=== PATIENT | male | born 1965 | race Hispanic/Latino ===

== ENCOUNTER 2022-09-30 10:32 | Observation (INO) | payer BC, SELFPAY ==
[2022-09-30] MEDS ORDERED: ASPIRIN 81 MG CHEWABLE TABLET ONE (10:47)
[2022-09-30 10:58] LABS: Absolute Lymphocytes (CBC) 2.4 K/uL (0.7-4.9); Hematocrit 37.9 % (39.6-49.0); Lymphocytes % 34.4 % (15.3-44.8); MCV 84.8 fL (80-100); MPV 7.3 fL (7.6-11.3); RBC Red Blood Cell Count 4.48 M/uL (4.33-5.43)
[2022-09-30 11:08] LABS: Protime INR 1.01
[2022-09-30 11:24] LABS: Albumin 3.4 g/dL (3.4-5.0); Bilirubin Direct 0.1 mg/dL (0-0.2); Bilirubin Total 0.4 mg/dL (0.2-1.0); Magnesium 2.1 mg/dL (1.6-2.4); Potassium 3.9 mmol/L (3.5-5.1); Protein, Total 7.3 g/dL (6.4-8.2); Troponin High Sensitivity 4.6 pg/mL (<58.9)
--- NOTE | 2022-09-30 11:34 | RAD REPORT ---
EXAM DESCRIPTION: Umm Single View09/30/2022 11:28 am CLINICAL HISTORY: Chest pain COMPARISON: none FINDINGS: Mild bilateral interstitial lung opacities The lungs appear clear of acute infiltrate. The heart is mildly to moderately enlarged IMPRESSION: These findings probably indicate mild CHF
--- NOTE | 2022-09-30 11:56 | ER ---
Nurse's Notes [facility] Name: Steve Hernandez Age: 57 yrs Sex: Male : 1965 Arrival Date: 09/30/2022 Time: 10:35 Bed 14 Private MD: Diagnosis: Chest pain, unspecified Presentation: 09/30 10:40 Chief complaint: Patient states: Chest pain 4/10 that began this morning. Coronavirus ss screen: Client denies travel out of the [place] in the last 14 days. Ebola Screen: Patient denies exposure to infectious person. Patient denies travel to an Ebola-affected area in the 21 days before illness onset. Initial Sepsis Screen: Does the patient meet any 2 criteria? No. Patient's initial sepsis screen is negative. Does the patient have a suspected source of infection? No. Patient's initial sepsis screen is negative. Risk Assessment: Do you want to hurt yourself or someone else? Patient reports no desire to harm self or others. Onset of symptoms was September 30, 2022. 10:40 Method Of Arrival: Ambulatory ss 10:40 Acuity: ANTONIO 3 ss Historical: - Allergies: 10:44 No Known Allergies; ss - Home Meds: 10:44 None [Active]; ss - PMHx: 10:44 None; ss - PSHx: 10:44 Unknown abd surgery 8 years ago; ss - Immunization history:: Client reports receiving the 2nd dose of the Covid vaccine. - Social history:: Smoking status: Patient denies any tobacco usage or history of. Patient uses alcohol, occasionally. Screenin:51 [facility] ED Fall Risk Assessment (Adult) History of falling in the last 3 months, ko1 including since admission No falls in past 3 months (0 pts) Confusion or Disorientation No (0 pts) Intoxicated or Sedated No (0 pts) Impaired Gait No (0 pts) Mobility Assist Device Used No (0 pt) Altered Elimination No (0 pt) Score/Fall Risk Level 0 - 2 = Low Risk Oriented to surroundings, Maintained a safe environment, Educated pt \T\ family on fall prevention, incl call for assistance when getting out of bed, Assessed \T\ reinforced patient's understanding of fall precautions, Provided non-skid footwear, Hourly rounding (assess needs \T\ fall precautionary measures) done, Used ambulatory aids as needed (educated on \T\ assisted with), Used gait belt as appropriate. Abuse screen: Denies threats or abuse. Denies injuries from another. Nutritional screening: No deficits noted. Tuberculosis screening: No symptoms or risk factors identified. Assessment: 10:53 Also complains of diaphoresis. Tenecteplase (TNKase) screening:. General: Appears in no ko1 apparent distress. comfortable, Behavior is calm, cooperative, appropriate for age. Pain: Pain does not radiate. Pain began gradually, 3 hours ago. Neuro: No deficits noted. Cardiovascular: Reports chest pain, diaphoresis. Respiratory: No deficits noted. GI: No deficits noted. : No deficits noted. EENT: No deficits noted. Derm: No deficits noted. Musculoskeletal: No deficits noted. Vital Signs: 10:40 BP 137 / 93; Pulse 76; Resp 16; Temp 98.2(O); Pulse Ox 96% on R/A; Weight 77.11 kg; ss Pain 4/10; 10:53 BP 139 / 87; Pulse 69; Resp 16; Pulse Ox 99% ; ko1 11:38 BP 127 / 85; Pulse 69; Resp 18; Pulse Ox 99% ; ko1 14:28 BP 119 / 92; Pulse 69; Pulse Ox 99% ; ko1 ED Course: 10:35 Patient arrived in ED. am2 10:36 [facility] 10:36 Vladimir Mendoza DO is Attending Physician. [facility] 10:36 PHCP role handed off by Braulio Duarte PA [facility] 10:36 Kim Mcfadden FNP is PHCP. [facility] 10:40 Ramona Chris, KATELYN is Primary Nurse. ko1 10:44 Triage completed. ss 10:44 Arm band placed on right wrist. ss 10:51 Patient has correct armband on for positive identification. Placed in gown. Bed in low ko1 position. Call light in reach. Side rails up X 1. Client placed on continuous cardiac and pulse oximetry monitoring. NIBP monitoring applied. secured entrance monitor on. 10:51 Basic Metabolic Panel Sent. ko1 10:51 CBC with Diff Sent. ko1 10:51 D-Dimer Sent. ko1 10:51 LFT's Sent. ko1 10:51 Magnesium Sent. ko1 10:51 NT PRO-BNP Sent. ko1 10:51 PT-INR Sent. ko1 10:51 Troponin HS Sent. ko1 10:51 Inserted saline lock: 20 gauge in right antecubital area, using aseptic technique. ko1 Blood collected. 10:51 Patient maintains SpO2 saturation greater than 95% on room air. ko1 11:55 Jenny Bethea MD is Hospitalizing Provider. 7 13:19 SARS RAPID Sent. ko1 14:08 No provider procedures requiring assistance completed. Patient admitted, IV remains in ko1 place. Administered Medications: 10:43 Drug: Aspirin Chewable Tablet 324 mg Route: PO; ko1 11:57 Drug: Nitroglycerin 0.4 mg Route: Sublingual; ko1 Medication: 14:08 VIS not applicable for this client. ko1 Outcome: 11:55 Decision to Hospitalize by Provider. jh 14:28 Admitted to Tele accompanied by tech, family with patient, via wheelchair, room 406, ko1 with chart. 14:28 Condition: improved 14:28 Instructed on the need for admit. 14:38 Patient left the ED. ko1 Signatures: Braulio Duarte PA PA jmm Smirch, Shelby, RN RN Renetta Leonardo amKim Dorado, MANAGER PAPER MANAGER PAPER [facility] Ramona Chris, RN RN ko1
--- NOTE | 2022-09-30 11:56 | EDPHYS ---
Physician Documentation [facility] Name: Steve Hernandez Age: 57 yrs Sex: Male : 1965 Arrival Date: 09/30/2022 Time: 10:35 Bed 14 Private MD: ED Physician Vladimir Mendoza HPI: 09/30 10:35 This 57 yrs old Male presents to ER via Unassigned with complaints of Chest jh7 Pain. 10:35 Onset: The symptoms/episode began/occurred this morning. Associated signs and symptoms: jh7 Pertinent positives: chest pain, Lightheadedness, Pertinent negatives: abdominal pain, cough, dysuria, fever, headache, shortness of breath, vomiting. Patient complains of left-sided chest pain and lightheadedness starting this morning while at work. Reports a 4 out of 10 pain at this time. Denies PMH, medications, and does not have a PCP.. Historical: - Allergies: 10:44 No Known Allergies; ss - Home Meds: 10:44 None [Active]; ss - PMHx: 10:44 None; ss - PSHx: 10:44 Unknown abd surgery 8 years ago; ss - Immunization history:: Client reports receiving the 2nd dose of the Covid vaccine. - Social history:: Smoking status: Patient denies any tobacco usage or history of. Patient uses alcohol, occasionally. ROS: 10:35 Constitutional: Negative for fever, chills, and weight loss, Eyes: Negative for injury, jh7 pain, redness, and discharge, Neck: Negative for injury, pain, and swelling, Respiratory: Negative for shortness of breath, cough, wheezing, and pleuritic chest pain, Abdomen/GI: Negative for abdominal pain, nausea, vomiting, diarrhea, and constipation, Back: Negative for injury and pain, MS/Extremity: Negative for injury and deformity, Skin: Negative for injury, rash, and discoloration, Neuro: Negative for headache, weakness, numbness, tingling, and seizure. 10:35 Cardiovascular: Positive for chest pain, Negative for orthopnea, palpitations. 10:35 All other systems are negative. Exam: 10:35 Constitutional: This is a well developed, well nourished patient who is awake, alert, jh7 and in no acute distress. Head/Face: Normocephalic, atraumatic. Eyes: Pupils equal round and reactive to light, extra-ocular motions intact. Lids and lashes normal. Conjunctiva and sclera are non-icteric and not injected. Cornea within normal limits. Periorbital areas with no swelling, redness, or edema. Neck: Trachea midline, no thyromegaly or masses palpated, and no cervical lymphadenopathy. Supple, full range of motion without nuchal rigidity, or vertebral point tenderness. No Meningismus. Cardiovascular: Regular rate and rhythm with a normal S1 and S2. No gallops, murmurs, or rubs. Normal PMI, no JVD. No pulse deficits. Respiratory: Lungs have equal breath sounds bilaterally, clear to auscultation and percussion. No rales, rhonchi or wheezes noted. No increased work of breathing, no retractions or nasal flaring. Abdomen/GI: Soft, non-tender, with normal bowel sounds. No distension or tympany. No guarding or rebound. No evidence of tenderness throughout. Back: No spinal tenderness. No costovertebral tenderness. Full range of motion. Skin: Warm, dry with normal turgor. Normal color with no rashes, no lesions, and no evidence of cellulitis. MS/ Extremity: Pulses equal, no cyanosis. Neurovascular intact. Full, normal range of motion. Neuro: Awake and alert, GCS 15, oriented to person, place, time, and situation. Motor strength 5/5 in all extremities. Sensory grossly intact. Normal gait. Vital Signs: 10:40 BP 137 / 93; Pulse 76; Resp 16; Temp 98.2(O); Pulse Ox 96% on R/A; Weight 77.11 kg; ss Pain 4/10; 10:53 BP 139 / 87; Pulse 69; Resp 16; Pulse Ox 99% ; ko1 11:38 BP 127 / 85; Pulse 69; Resp 18; Pulse Ox 99% ; ko1 14:28 BP 119 / 92; Pulse 69; Pulse Ox 99% ; ko1 MDM: 10:37 Patient medically screened. [facility] 12:25 Differential diagnosis: pneumonia Acute [place], costochondritis, pulmonary embolism. Data [facility] reviewed: vital signs, nurses notes, lab test result(s), EKG, radiologic studies, plain films. Consideration of Admission/Observation Patient was admitted/placed on observation. Management of patient was discussed with the following: Hospitalist: Dr. Bethea. I considered the following discharge prescriptions or medication management in the emergency department Medications were administered in the Emergency Department. See MAR. Independent interpretation of the following test(s) in the Emergency Department EKG: See my EKG interpretation above. Test considered but Not performed: CT: CTA not performed due to negative D-dimer and normal vital signs. Historians other than the Patient: Friend: . Counseling: I had a detailed discussion with the patient and/or guardian regarding: the historical points, exam findings, and any diagnostic results supporting the discharge/admit diagnosis, the need for further work-up and treatment in the hospital. 09/30 10:37 Order name: Basic Metabolic Panel [facility] 09/30 10:37 Order name: CBC with Diff [facility] 09/30 10:37 Order name: D-Dimer [facility] 09/30 10:37 Order name: LFT's [facility] 09/30 10:37 Order name: Magnesium [facility] 09/30 10:37 Order name: NT PRO-BNP [facility] 09/30 10:37 Order name: PT-INR [facility] 09/30 10:37 Order name: Troponin HS [facility] 09/30 11:04 Order name: CBC with Automated Diff; Complete Time: 11:04 [facility] 09/30 11:09 Order name: Protime (+INR); Complete Time: 11:12 [facility] 09/30 11:09 Order name: D-Dimer; Complete Time: 11:12 [facility] 09/30 11:24 Order name: Basic Metabolic Panel; Complete Time: 11:26 [facility] 09/30 11:24 Order name: Liver (Hepatic) Function; Complete Time: 11:26 [facility] 09/30 11:24 Order name: Troponin High Sensitivity; Complete Time: 11:26 [facility] 09/30 10:37 Order name: XRAY Chest (1 view) [facility] 09/30 10:37 Order name: EKG; Complete Time: 10:38 [facility] 09/30 10:37 Order name: Cardiac monitoring; Complete Time: 10:41 [facility] 09/30 10:37 Order name: EKG - Nurse/Tech; Complete Time: 10:41 [facility] 09/30 10:37 Order name: IV Saline Lock; Complete Time: 10:51 [facility] 09/30 10:37 Order name: Labs collected and sent; Complete Time: 10:51 7 09/30 10:37 Order name: O2 Per Protocol; Complete Time: 10:41 7 09/30 10:37 Order name: O2 Sat Monitoring; Complete Time: 10:41 7 09/30 11:24 Order name: NT PRO-BNP; Complete Time: 11:26 EDMS 09/30 11:24 Order name: Magnesium; Complete Time: 11:26 EDMS 09/30 11:35 Order name: RAD; Complete Time: 11:42 EDMS 09/30 12:44 Order name: SARS RAPID ko1 09/30 13:36 Order name: SARS-COV-2 Antigen Rapid EDRI EC:52 Rate is 74 beats/min. Rhythm is regular. QRS [place] is Normal. NH interval is normal at [facility] 166 msec. QRS interval is normal at 88 msec. QT interval is normal at 362 msec. No Q waves. T waves are Normal. No ST changes noted. Clinical impression: Normal ECG. Administered Medications: 10:43 Drug: Aspirin Chewable Tablet 324 mg Route: PO; ko1 11:57 Drug: Nitroglycerin 0.4 mg Route: Sublingual; ko1 Disposition: 13:57 Co-signature as Attending Physician, Vladimir Mendoza DO I reviewed the patient's care ms3 provided by Advanced Practice Provider \T\ agree w/ the diagnosis \T\ care plan. I personally saw the pt \T\ performed a substantive portion of the visit, incldng all aspects of the (History/Exam/Medical Decision Making). Disposition Summary: 09/30/22 11:55 Hospitalization Ordered Hospitalization Status: Observation [facility] Provider: Jenny Bethea [facility] Location: Telemetry/MedSurg (observation) [facility] Condition: Fair [facility] Problem: new [facility] Symptoms: are unchanged [facility] Bed/Room Type: Standard [facility] Room Assignment: 406(09/30/22 13:15) dw Diagnosis - New onset CHF [facility] - Chest pain, unspecified [facility] Forms: - Medication Reconciliation Form [facility] - SBAR form [facility] Signatures: Dispatcher [employer] Sandie García RN RN dw Smirch, Shelby, RN RN ss Sims, Marcus, DO DO ms3 Kim Mcfadden FNP LIGHT INDUSTRIAL SUPERVISOR [facility] Ramona Chris RN RN ko1 Corrections: (The following items were deleted from the chart) 13:15 11:55 jh7 dw
[2022-09-30] MEDS ORDERED: NITROGLYCERIN 0.4 MG/TAB SL ONE (12:01)
[2022-09-30] MEDS ORDERED: ACETAMINOPHEN 500 MG TAB PO PRN (13:01)
[2022-09-30] MEDS ORDERED: ONDANSETRON 4 MG/2 ML VIAL IV PRN (13:01)
--- NOTE | 2022-09-30 13:17 | P.HP ---
Certification for Inpatient Patient admitted to: Observation With expected LOS: <2 Midnights Patient will require the following post-hospital care: None Practitioner: I am a practitioner with admitting privileges, knowledge of patient current condition, hospital course, and medical plan of care. Services: Services provided to patient in accordance with Admission requirements found in Title 42 Section 412.3 of the Code of Federal Regulations Patient History Date of Service: 09/30/22 Primary Care Provider: None Reason for admission: Chest pain History of Present Illness: This is a 57-year-old male with no prior medical history who presents to the emergency room with complaints of chest pain. Patient was evaluated in the ER with supervisor fish bait processing at the bedside. Patient is mostly Kiswahili-speaking, review of systemshistory obtained from supervisor fish bait processing in collaboration with patient. Initially, it was reported that patient presented with left-sided chest pain, during exam, patient reported right-sided chest pain. It was reported that his ches pain started yesterday while at work, and got progressively worse today at work. Patient reports 4 out of 10 pain to his right chest. Patient stated that he did not pull any muscle while he was at work. Only associated symptoms reported was headache. Patient denies any shortness of breath, vomiting, lightheadedness. Patient was asked if there were any stressors that could have contributed to his pain. It was reported that patient had a short stent at the hospital in May when him and his . Professor Of Physical Education reported that patient was depressed and motioned a cutting gesture to his wrist. He was seen by a health professional, with no interventions. Patient also said he has been stressed out because his son is currently in nursing home. Patient states that he does not want any counseling at the moment. Patient received aspirin and nitro, patient states he is currently pain-free. In the ER, patient's EKG was was normal. Chest x-ray demonstrated mild CHF no prior medical history. His initial troponins and D-dimer were negative. Patient will be admitted under the care of Dr. Bethea. Cardiology will be consulted for further recommendations. Allergies No Known Allergies Allergy (Unverified 09/30/22 13:17) Home medications list reviewed: No (none) Home Medications: NK [No Home Meds] 09/30/22 - Past Medical/Surgical History Past Medical History: Patient denies medical history Past Surgical History: Patient denies surgical history - Family History Mother -: Diabetes - Social History Smoking Status: Never smoker Alcohol use: Yes CD- Drugs: No Caffeine use: Yes Place of Residence: Home Review of Systems 10-point ROS is otherwise unremarkable Cardiovascular: Chest Pain Physical Examination - Vital Signs Temperature: 98.2 F Blood Pressure: 135/92 Pulse: 61 Respirations: 14 Pulse Ox (%): 100 - Physical Exam General: In no apparent distress, Oriented x3 HEENT: Atraumatic, Normocephalic, PERRLA Neck: Supple, 2+ carotid pulse no bruit Respiratory: Clear to auscultation bilaterally, Normal air movement Cardiovascular: No edema, Normal pulses, Regular rate/rhythm, Normal S1 S2 Capillary refill: <2 Seconds Gastrointestinal: Normal bowel sounds Musculoskeletal: No clubbing, No swelling, No contractures Integumentary: No rashes, No breakdown, No significant lesion Neurological: Normal speech, Normal strength at 5/5 x4 extr, Normal tone Lymphatics: No axilla or inguinal lymphadenopathy - Studies Laboratory Data (last 24 hrs) 09/30/22 10:50: PT 11.1, INR 1.01 09/30/22 10:50: WBC 7.10, Hgb 13.3 L, Hct 37.9 L, Plt Count 249 09/30/22 10:50: Sodium 138, Potassium 3.9, BUN 14, Creatinine 1.00, Glucose 109 H, Magnesium 2.1, Total Bilirubin 0.4, AST 21, ALT 26, Alkaline Phosphatase 74 Assessment and Plan - Plan Assessment Chest pain ACS rule out Congestive heart failure Plan Chest pain ACS rule out Pain resolved Initial troponin negative , trend serial troponins Cardiology consulted, recommendations appreciated Continue aspirin and statin On telemetry Congestive heart failure Chest x-ray shows mild congestive heart failure No prior history per patient Cardiology consulted recommendations appreciated Echo pending DVT PPX- Lovenox Full code Discharge Plan: Home Plan to discharge in: 48 Hours - Advance Directives Does patient have a Living Will: No Does patient have a Durable POA for Healthcare: No - Code Status/Comfort Care Code Status Assessed: Yes (Full code) Critical Care: No Time Spent Managing Pts Care (In Minutes): 50
[2022-09-30 13:35] LABS: SARS-CoV-2 Antigen Rapid Res Negative (Negative)
[2022-09-30 15:19] LABS: Albumin 3.4 g/dL (3.4-5.0); Bilirubin Direct 0.1 mg/dL (0-0.2); Bilirubin Total 0.5 mg/dL (0.2-1.0); Protein, Total 7.2 g/dL (6.4-8.2); Thyroid Stimulating Hormone 2.34 uIU/mL (0.358-3.740)
[2022-09-30 16:02] VITALS: BMI 28.3
[2022-09-30] MEDS ORDERED: ATORVASTATIN 40 MG TAB PO SCH (21:00)
--- NOTE | 2022-09-30 21:29 | CON ---
Date of Consultation: 09/30/2022 Reason For Consultation: Chest pain. History Of Present Illness: A 57-year-old male, Austrian speaking, presented to emergency room with c hest pain, was on the left side, then moved to the right side, started while at work, then became pro gressively worse. Reported it about 5/10, and improved. In the present time, he is chest pain free. Past Medical History: None. Medications: None. Allergies: NO KNOWN DRUG ALLERGIES. Family History: No premature coronary artery disease or cancer. Social History: He does not smoke or drink. Does not use any drugs. Review of Systems: All systems were reviewed and they were negative except as mentioned in the HPI. Physical Examination: Vital Signs: Reviewed. Head and Neck: Pupils are equal, reactive to light. Intact eye movements. No JVD. No cervical lym phadenopathy. Neck is supple. Thyroid is not enlarged. Lungs: Clear to auscultation bilaterally. No rhonchi, rales, or crackles. No accessory muscle use. Heart: Regular rate and rhythm. No extra sounds. Abdomen: Soft, nontender. Bowel sounds positive. No organomegaly. No masses or hernia. No rigidi ty or rebound. Extremities: No edema, clubbing, or cyanosis. Intact pulses. Skin: No rashes. Neurologic: Alert, awake, oriented x3. No acute focal deficits appreciated. Investigations: Two troponins are negative. BUN 14, creatinine 1.0 and hemoglobin is 13.3. Assessment And Recommendation: Chest pain. Cardiac enzymes are negative. No major risk factors. I f the third set is negative, patient can be released and follow up as an outpatient for exercise stre ss test and an echo which can be arranged on an outpatient basis. SR/MODL Voice ID: [id number] Report ID: [id number]
[2022-10-01 05:04] LABS: Absolute Lymphocytes (CBC) 2.1 K/uL (0.7-4.9); Hematocrit 38.1 % (39.6-49.0); Lymphocytes % 27.8 % (15.3-44.8); MCV 85.3 fL (80-100); RBC Red Blood Cell Count 4.47 M/uL (4.33-5.43)
[2022-10-01 05:14] LABS: Magnesium 2.1 mg/dL (1.6-2.4); Potassium 3.9 mmol/L (3.5-5.1)
[2022-10-01] MEDS ORDERED: REGADENOSON 0.4 MG/5 ML SYR IV ONE (07:46)
[2022-10-01] MEDS ORDERED: ASPIRIN EC 81 MG TAB PO SCH (09:00)
[2022-10-01] MEDS ORDERED: ENOXAPARIN 40 MG/0.4 ML SQ SCH (09:00)
[2022-10-01 12:38] VITALS: BP 114/68; TEMP 97.5
--- NOTE | 2022-10-01 13:22 | EKG ---
Test Date: 2022-09-30 Test Time: 10:45:33 Power Wood Sawyer: MEASUREMENT RESULTS: Intervals: Rate: 74 AK: 166 QRSD: 88 QT: 362 QTc: 401 [place]: P: 66 AK: 166 QRS: 17 T: 30 INTERPRETIVE STATEMENTS: Normal sinus rhythm Normal ECG No previous ECG available for comparison Electronically Signed On 10-01-22 13:19:04 MILLER KILN DRIED SALT by Blake Ferro
--- NOTE | 2022-10-01 13:22 | EKG ---
Test Date: 2022-09-30 Test Time: 12:11:10 Laboratory Development Technician: CARLO MEASUREMENT RESULTS: Intervals: Rate: 67 AR: 160 QRSD: 98 QT: 394 QTc: 416 [place]: P: 50 AR: 160 QRS: 23 T: 34 INTERPRETIVE STATEMENTS: Sinus rhythm with occasional premature ventricular complexes Otherwise normal ECG Compared to ECG 09/30/2022 10:45:33 Ventricular premature complex(es) now present Electronically Signed On 10-01-22 13:18:57 ROLLER VARNISHER by Blake Ferro
--- NOTE | 2022-10-01 13:50 | RAD REPORT ---
EXAM DESCRIPTION: NM - Rest Stress Cardiac Imaging - 10/01/2022 1:32 pm CLINICAL HISTORY: Chest pain. COMPARISON: None. TECHNIQUE: The patient was administered 9.2 mCi of Tc 99m Sestamibi prior to resting SPECT imaging o f the heart. The patient was then administered 30. 8 mCi of Tc 99m Sestamibi following exercise or ph armacologic stress. Multiplanar SPECT images were reviewed. FINDINGS: There is uniformity of radiotracer uptake involving the entire left ventricular myocardiu m on rest and stress images. The left ventricular ejection fraction equals 57% IMPRESSION: Negative for a myocardial perfusion defect
--- NOTE | 2022-10-01 14:28 | ECHO ---
HEIGHT: 5 ft 5 in WEIGHT: 170 lb 0 oz DATE OF STUDY: 10/01/[address]: Yusuf Weinstein NP 2-DIMENSIONAL: YES M.MODE: YES DOPPLER: YES COLOR FLOW: YES TDS: PORTABLE: YES DEFINITY: BUBBLE STUDY: DIAGNOSIS: CHEST PAIN, CONGESTIVE HEART FAILURE CARDIAC HISTORY: CATHERIZATION: NO SURGERY: NO PROSTHETIC VALVE: NO PACEMAKER: NO MEASUREMENTS (cm) DIASTOLIC (NORMALS) SYSTOLIC (NORMALS) IVSd 1.1 (0.6-1.2) LA Diam 2.7 (1.9-4.0) LVEF 60-65% LVIDd 3.9 (3.5-5.7) LVIDs 2.2 (2.0-3.5) %FS 44% LVPWd 1.1 (0.6-1.2) Ao Diam 2.4 (2.0-3.7) 2 DIMENSIONAL ASSESSMENT: RIGHT ATRIUM: NORMAL LEFT ATRIUM: NORMAL RIGHT VENTRICLE: NORMAL LEFT VENTRICLE: NORMAL TRICUSPID VALVE: MILD TRICUSPID REGURGITATION MITRAL VALVE: TRACE MITRAL REGURGITATION PULMONIC VALVE: NORMAL AORTIC VALVE: NORMAL PERICARDIAL EFFUSION: NONE AORTIC ROOT: NORMAL LEFT VENTRICULAR WALL MOTION: NORMAL DOPPLER/COLOR FLOW: SEE BELOW COMMENTS: 1. NORMAL LEFT VENTRICULAR EJECTION FRACTION 60-65% 2. NORMAL WALL MOTION 3. NORMAL DIASTOLIC FUNCTION 4. MILD TRICUSPID REGURGITATION 5. TRACE MITRAL REGURGITATION TECHNOLOGIST: ZARI CÁRDENAS
--- NOTE | 2022-10-01 14:35 | TREADPHA ---
DX: CHEST PAIN, CONGESTIVE HEART FAILURE Date of Study: 09/30/2022 Ht: 5' 5 " Wt: 170 lb 0 oz Consulting Physician: MARIO MEDICATIONS: TYLENOL, ASPIRIN, LIPITOR, LOVENOX, ZOFRAN HISTORY: 57 YEAR OLD MALE WITH COMPLAINTS OF CHEST PAIN. HISTORY OF HYPERLIPIDEMIA PHYSICIAL EXAMINATION: RESTING B.P.: 129/81 RESTING H.R.: 62 RESTING EKG: NORMAL SINUS RHYTHM PROTOCOL: PHARMACOLOGIC EXERCISE TIME: 3:30 B.P. AT [facility] STRESS: 138/87 IMPRESSION: LEXISCAN STRESS TEST PERFORMED ORDERED BY PHYSICIAN. CARDIOLITE INJECTED PER PROTOCOL. NO SUPRAVENTRICULAR TACHYCARDIA, VENTRICULAR TACHYCARDIA. NO CHEST PAIN NOTED OR SHORTNESS OF BREATH. PATIENT COMPLAINS OF HEADACHE POST PROCEDURE. NO ELECTROCARDIOGRAM CHANGES WITH LEXISCAN.
--- NOTE | 2022-10-01 16:11 | P.DS ---
Discharge Date: 10/01/22 Primary Care Provider: None Disposition: ROUTINE DISCHARGE Discharge Condition: GOOD Reason for Admission: Chest pain Brief History of Present Illness: This is a 57-year-old male with no prior medical history who presents to the emergency room with complaints of chest pain. Patient was evaluated in the ER with manufacturing engineer supervisor at the bedside. Patient is mostly Brazilian-speaking, review of systemshistory obtained from manufacturing engineer supervisor in collaboration with patient. Initially, it was reported that patient presented with left-sided chest pain, during exam, patient reported right-sided chest pain. It was r eported that his ches pain started yesterday while at work, and got progressively worse today at work. Patient reports 4 out of 10 pain to his right chest. Patient stated that he did not pull any muscle while he was at work. Only associated symptoms reported was headache. Patient denies any shortness of breath, vomiting, lightheadedness. Patient was asked if there were any stressors that could have contributed to his pain. It was reported that patient had a short stent at the hospital in May when him and his . Physical Security Manager reported that patient was depressed and motioned a cutting gesture to his wrist. He was seen by a health professional, with no interventions. Patient also said he has been stressed out because his son is currently in [place] [facility]. Patient states that he does not want any counseling at the moment. Patient received aspirin and nitro, patient states he is currently pain-free. In the ER, patient's EKG was was normal. Chest x-ray demonstrated mild CHF no prior medical history. His initial troponins and D-dimer were negative. Patient will be admitted under the care of Dr. Bethea. Cardiology will be consulted for further recommendations. Hospital Course: Patient stress test came back unremarkable. Patient is clinically doing well and stable for discharge with outpatient follow-up. Vital Signs/Physical Exam: Temp Pulse Resp BP Pulse Ox 97.5 F 64 16 114/68 100 10/01/22 12:00 10/01/22 12:00 10/01/22 12:00 10/01/22 12:00 10/01/22 12:00 General: Alert, In no apparent distress, Oriented x3 Laboratory Data at Discharge: WBC 7.40 K/uL (4.3-10.9) 10/01/22 04:24 Hgb 13.4 g/dL (13.6-17.9) L 10/01/22 04:24 Hct 38.1 % (39.6-49.0) L 10/01/22 04:24 Plt Count 242 K/uL (152-406) 10/01/22 04:24 PT 11.1 SECONDS (9.5-12.5) 09/30/22 10:50 INR 1.01 09/30/22 10:50 Sodium 138 mmol/L (136-145) 10/01/22 04:24 Potassium 3.9 mmol/L (3.5-5.1) 10/01/22 04:24 BUN 15 mg/dL (7-18) 10/01/22 04:24 Creatinine 1.01 mg/dL (0.70-1.30) 10/01/22 04:24 Glucose 120 mg/dL (74-106) H 10/01/22 04:24 Magnesium 2.1 mg/dL (1.6-2.4) 10/01/22 04:24 Total Bilirubin 0.5 mg/dL (0.2-1.0) 09/30/22 14:47 AST 19 U/L (15-37) 09/30/22 14:47 ALT 26 U/L (16-61) 09/30/22 14:47 Alkaline Phosphatase 64 U/L (45-117) 09/30/22 14:47 Triglycerides 182 mg/dL (<150) H 10/01/22 04:24 Cholesterol 207 mg/dL (<200) H 10/01/22 04:24 HDL Cholesterol 48 mg/dL (40-60) 10/01/22 04:24 Cholesterol/HDL Ratio 4.31 10/01/22 04:24 Home Medications: Aspirin [Aspirin EC 81 MG] 81 mg PO DAILY #30 tab 10/01/22 Atorvastatin Calcium [Lipitor] 10 mg PO BEDTIME #30 tab 10/01/22 New Medications: Aspirin [Aspirin EC 81 MG] 81 mg PO DAILY #30 tab Atorvastatin Calcium [Lipitor] 10 mg PO BEDTIME #30 tab Physician Discharge Instructions: -DC IV and DC home -Follow-up with PCP in 1 to 2 weeks -Follow-up with Cardiology in 1 to 2 weeks -Please call Dr. Bethea at [phone] if any questions regarding hospital stay -Please call nursing station at [phone] if any nursing or medication questions -Return to the emergency room if symptoms worsen Follow up with a Field Superintendent of your choice: ZAHRA YOUNG, [address], [place] [address] MARIO YOUNG, DONITA [address] [place] [address], [place] [address] Diet: AHA Activity: Fall precautions Followup: NONE,NONE [Primary Care Provider] - Time spent managing pt's care (in minutes): 35
--- NOTE | 2022-10-01 18:23 | PN ---
Date of Progress Note: 10/01/2022 Subjective: Seen by bedside. No further chest pain. Review of Systems: No chest pain, shortness of breath, orthopnea, cough, nausea, vomiting, or diarrhea. All other syste ms reviewed and they were negative. Physical Examination: Vital Signs: Reviewed. Head And Neck: Pupils are equal and reactive to light. Intact eye movements. No JVD. No cervical lymphadenopathy. Neck is supple. Thyroid is not enlarged. Lungs: Clear to auscultation bilaterally. No rhonchi, wheezing, or crackles. No accessory muscle u se. Heart: Regular rate and rhythm. No extra sounds. Abdomen: Soft, nontender. Bowel sounds positive. No organomegaly. No masses or hernia. No rigidi ty or rebound. Extremities: No edema, clubbing, or cyanosis. Intact pulses. Skin: No rashes. Neurologic: Alert, awake, oriented x3. No acute focal deficits appreciated. Investigations: Cardiac enzymes are negative. BUN is 15, creatinine is 1. Hemoglobin is 13.4. Car diac stress test was negative. Echo showed normal ejection fraction. Assessment/recommendation: 1.Chest pain. Cardiac enzymes are negative. Echo is with normal ejection fraction and stress test was negative. This is noncardiac. The patient can be released and follow up as an outpatient. 2.Dyslipidemia. Continue statin. Cardiology will sign off. SR/MODL Voice ID: [id number] Report ID: [id number]
== END 2022-10-01 15:30 | disposition home or self-care (01) ==
LOC: ER 10:32 → ERHOLD 12:35 → 4TH 14:25
PROVIDERS: ADMIT Hospitalist; ATTEND Hospitalist
DX: R07.9 Chest pain, unspecified (principal); R51.9 Headache, unspecified; F32.A Depression, unspecified; E78.5 Hyperlipidemia, unspecified; Z95.5 Presence of coronary angioplasty implant and graft; Z20.822 Contact with and (suspected) exposure to COVID-19
CPT/HCPCS: 93005; 93017; 93306; 85025 ×2; 80048 ×2; 36415 ×2; 83735 ×2; 85610; 80061; 85379; 80076 ×2; 84443; 83036; 84484 ×3; 84439; 83880; 71045; 78452; 99285; 87811; J1650; J2785; A9500; G0378